=== PATIENT | female | born 1970 | race Caucasian/White ===

== ENCOUNTER 2021-01-10 15:15 | Emergency (ER) | payer MEDICARE ==
[~2021-01-10] VITALS: Ht 167.6 cm; Wt 74.8 kg
[2021-01-10] MEDS ORDERED: DILAUDID2 MG (15:25)
[2021-01-10] MEDS ORDERED: FENTANYL PATCH (15:25)
[2021-01-10] MEDS ORDERED: NEURONTIN 300M300 M2 PO (15:26)
[2021-01-10] MEDS ORDERED: PROZOSIN (15:26)
[2021-01-10 15:44] LABS: ABSOLUTE BASOPHILS 0.1 thou/uL (0.0-0.2); ABSOLUTE EOSINOPHILS 0.1 thou/uL (0.0-0.7); ABSOLUTE LYMPHOCYTES 3.5 thou/uL (0.8-5.3); ABSOLUTE MONOCYTES 0.6 thou/uL (0.0-1.2); ABSOLUTE NEUTROPHILS 6.6 thou/uL (1.6-8.1); BASOPHILS 0.7 %; EOSINOPHILS 1.3 %; HEMATOCRIT 39.6 % (37.0-47.0); HEMOGLOBIN 13.7 gm/dL (12.0-15.0); MCH 30.2 pg (26.0-34.0); MCHC 34.6 g/dL (28.0-37.0); MCV 87.5 fL (80.0-100.0); MONOCYTES 5.9 %; MPV 8.4 fl. (7.2-11.1); NUCLEATED RBCS 0 /100WBC; PLATELET COUNT* 204 thou/uL (150-400); POLYS 60.1 %; RBC 4.52 mil/uL (4.20-5.00); RDW-CV 13.9 % (10.5-14.5); WBC 10.9 thou/uL (4.0-11.0)
[2021-01-10 15:54] LABS: CALCIUM 8.8 mg/dL (8.5-10.1); CREATININE 0.6 mg/dL (0.6-1.3); POTASSIUM 3.9 mmol/L (3.5-5.1)
[2021-01-10 15:59] LABS: ALBUMIN 3.5 g/dL (3.4-5.0); TOTAL BILIRUBIN 0.3 mg/dL (<0.1-1.0); TOTAL PROTEIN 7.2 g/dL (6.4-8.2)
[2021-01-10] MEDS ORDERED: ZPAK PO (17:13)
[2021-01-10] MEDS ORDERED: PREDNISONE 20 M20 M1 PO (17:13)
[2021-01-10 17:22] VITALS: BP 145/83
--- NOTE | 2021-01-11 14:20 | EKG ---
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 : 1970 Requested By: Sánchez Crenshaw Order Number: [id number] MD: Emmett Ramirez Measurements Intervals [place] Rate: 98 P: 71 IN: 185 QRS: 56 QRSD: 87 T: 41 QT: 354 QTc: 453 Interpretive Statements Sinus rhythm Baseline wander in lead(s) V1,V2 No previous ECG available for comparison Electronically Signed On 01-11-2021 14:20:21 CDT by Emmett Ramirez [email or web address] <ELECTRONICALLY SIGNED> By: Emmett Ramirez MD, [facility] 01/11/21 1420 1530 29 Emmett Ramirez MD, [facility] /EPI
== END 2021-01-10 17:23 | disposition home or self-care (01) ==
LOC: M.ERS 15:15
PROVIDERS: Family Medicine
DX: R10.11 Right upper quadrant pain (principal); J18.9 Pneumonia, unspecified organism